=== PATIENT | female | born 1960 | race Caucasian/White ===

== ENCOUNTER → 2016-12-12 | Outpatient (CLI) | payer OTHER | END | disposition home or self-care (01) | DX: R26.2 Difficulty in walking, not elsewhere classified (principal); M62.81 Muscle weakness (generalized); M25.552 Pain in left hip; M25.652 Stiffness of left hip, not elsewhere classified | CPT/HCPCS: 97110 GP; 97150 GO; 97161 GP; 97165 GO ==

== ENCOUNTER 2017-01-15 06:08 | Inpatient (IN) | payer OTHER ==
[~2017-01-15] VITALS: Ht 157.5 cm; Wt 73.5 kg
[~2017-01-15 06:08] MED LIST: BACTRIM,SEPT1 TABLET PO; CRESTOR20 MG PO; DIOVAN HCT 81 TABLET PO; OXYCODONE HCL20 M1 PO; PREDNISONE20 MG PO; SENNA PLUS TAB1 EACH PO; SIMPONI100 MG/11 SC
[2017-01-15 06:47] VITALS: BP 127/79
== END 2017-01-15 07:45 | disposition home or self-care (01) | DRG 554 ==
LOC: 2SOUTH 06:08
DX: M16.12 Unilateral primary osteoarthritis, left hip (principal); M25.562 Pain in left knee; M87.9 Osteonecrosis, unspecified; I10 Essential (primary) hypertension; K51.90 Ulcerative colitis, unspecified, without complications; Z79.52 Long term (current) use of systemic steroids
CPT/HCPCS: 36415; 80048; 85025; 85610; 85651; 86140; 86900; 86901; J0690; J2250; J2405; J7050

== ENCOUNTER 2017-02-20 07:01 | Inpatient (IN) | payer OTHER ==
[~2017-02-20] VITALS: Ht 157.5 cm; Wt 76.6 kg
[2017-02-20 07:48] VITALS: BP 135/83
[2017-02-20 13:24] LABS: HEMATOCRIT 41.5 % (36.0-46.0); MCV 94.7 FL (83-99)
[2017-02-20 14:55] VITALS: BP 137/75
[2017-02-20 17:22] VITALS: BP 123/60
[2017-02-20 20:07] VITALS: BP 128/82
[2017-02-21 00:20] VITALS: BP 117/67
[2017-02-21 04:12] VITALS: BP 111/56
[2017-02-21 06:12] LABS: INTER. NORMALIZED RATIO 1.4
[2017-02-21 06:17] LABS: ANION GAP 6 MEQ/L (2-14); CHLORIDE 104 MEQ/L (99-109); GFR ESTIMATE (CALCULATED) > 59 mL/min/; GLUCOSE 92 mg/dL (70-99); POTASSIUM 3.5 MEQ/L (3.7-5.4); SAMPLE HEMOLYSIS CHECK 0; SAMPLE ICTERIC CHECK 0; SAMPLE LIPEMIA CHECK 0; SODIUM 143 MEQ/L (136-147); UREA NITROGEN (BUN) 9 mg/dL (9-23)
[2017-02-21 08:00] VITALS: BP 110/58
[2017-02-21 12:25] VITALS: BP 128/63
[2017-02-21 13:25] LABS: HEMATOCRIT 34.4 % (36.0-46.0); MCV 93.7 FL (83-99)
[2017-02-21 16:00] VITALS: BP 102/56
[2017-02-21 20:00] VITALS: BP 104/62
[2017-02-22 00:20] VITALS: BP 106/56
[2017-02-22 04:15] VITALS: BP 113/65
[2017-02-22 05:49] LABS: HEMATOCRIT 32.9 % (36.0-46.0); MCV 93.7 FL (83-99)
[2017-02-22 06:21] LABS: INTER. NORMALIZED RATIO 1.4; PROTHROMBIN TIME 14.5 (9.2-11.2)
[2017-02-22 06:41] LABS: ANION GAP 9 MEQ/L (2-14); CHLORIDE 102 MEQ/L (99-109); GFR ESTIMATE (CALCULATED) > 59 mL/min/; GLUCOSE 124 mg/dL (70-99); POTASSIUM 4.2 MEQ/L (3.7-5.4); SAMPLE HEMOLYSIS CHECK 0; SAMPLE ICTERIC CHECK 0; SAMPLE LIPEMIA CHECK 0; SODIUM 142 MEQ/L (136-147); UREA NITROGEN (BUN) 7 mg/dL (9-23)
[2017-02-22] MEDS ORDERED: OXYCODONE HCL5 MG PO (08:05)
[2017-02-22] MEDS ORDERED: CELECOXIB200 MG PO (08:05)
[2017-02-22] MEDS ORDERED: WARFARIN SODIU2.5 MG PO (08:05)
[2017-02-22 08:24] VITALS: BP 150/67
[2017-02-22 12:27] VITALS: BP 117/73
== END 2017-02-22 13:55 | disposition home health service (06) | DRG 470 ==
LOC: 2SOUTH 07:01 → 3WEST 14:17
PROVIDERS: Orthopaedic Surgery; Physician Assistant
PROC: 0SRB01A Replacement of Left Hip Joint with Metal Synthetic Substitute, Uncemented, Open Approach (ICD-10-PCS; principal; 2017-02-20)
DX: M87.152 Osteonecrosis due to drugs, left femur (principal); K50.90 Crohn's disease, unspecified, without complications; I10 Essential (primary) hypertension; T38.0X5A Adverse effect of glucocorticoids and synthetic analogues, initial encounter; K51.90 Ulcerative colitis, unspecified, without complications; M16.12 Unilateral primary osteoarthritis, left hip; Z79.52 Long term (current) use of systemic steroids
CPT/HCPCS: 80048; 84132; 85014; 85018; 85610; J0131; J0690; J1170; J1720; J2175; J2250; J3010; J7050; J7120; J7512